=== PATIENT | male | born 1990 | race Caucasian/White ===

== ENCOUNTER 2020-03-19 07:25 | Emergency (ER) | payer OTHER, SELFPAY ==
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
[2020-03-19 07:25] VITALS: BP 132/79; PULSE 100; RESP 18; TEMP 36.6; O2SAT 99
--- NOTE | 2020-03-19 07:45 | PC.NURSE ---
Pt. refused to keep c-collar in place and removed it per self even p risks explained to pt. He states he is claustrophobic and can't breathe with it on.
[2020-03-19 08:10] LABS: Basophils Absolute Auto 0.07 K/mm3 (0.00-0.10); Eosinophils Absolute Auto 0.04 K/mm3 (0.02-0.50); Eosinophils Percent Auto 0.6 % (1.0-6.0); Hematocrit 44.9 % (40.0-54.0); Hemoglobin 14.6 g/dL (14.0-18.0); Immature Granulocyte Absolute 0.15 K/mm3 (0.00-0.00); Immature Granulocyte Percent A 2.1 % (0.0-0.0); Lymphocytes Absolute Auto 1.28 K/mm3 (1.10-4.50); Lymphocytes Percent Auto 18.2 % (18.0-42.0); Mean Corpuscular HGB Conc 32.5 g/dL (32.0-36.0); Mean Corpuscular Hemoglobin 28.3 pg (27.0-31.0); Mean Platelet Volume 10.6 fl (8.7-11.0); Monocytes Absolute Auto 0.52 K/mm3 (0.10-0.90); Monocytes Percent Auto 7.4 % (2.0-11.0); Neutrophils Percent Auto 70.7 % (50.0-70.0); Platelet Count Result 290 K/mm3 (150-420); Red Blood Count 5.16 M/mm3 (4.70-6.10); Red Cell Distribution Width 12.9 % (11.6-14.4)
[2020-03-19 08:27] LABS: Alanine Aminotransferase 64 U/L (16-63); Albumin Level 3.6 g/dL (3.4-5.0); Alkaline Phosphatase 82 U/L (46-116); Anion Gap 9 mmol/L (8-16); Aspartate Amino Transferase 28 U/L (15-37); Bilirubin,Total 0.2 mg/dL (0.00-1.00); Blood Urea Nitrogen 11 mg/dL (7-18); Calcium 9.2 mg/dL (8.5-10.1); Carbon Dioxide 25 mmol/L (21-32); Chloride 106 mmol/L (98-108); Estimated CRCL calculation 118 ml/min; Estimated Glomerular Filt Rate > 60; Glucose 150 mg/dL (70-99); Osmolality Calculated 292 mOsm/kg (285-295); Potassium 3.8 mmol/L (3.5-5.1); Sodium 140 mmol/L (136-145); Total Protein 7.9 g/dL (6.4-8.2)
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
[2020-03-19 09:34] VITALS: BP 130/75; PULSE 65; RESP 20; TEMP 36.4; O2SAT 100
== END 2020-03-19 09:47 | disposition home or self-care (01) ==
PROVIDERS: Emergency Provider Emergency Medicine
DX: S39.012A Strain of muscle, fascia and tendon of lower back, initial encounter (principal); S16.1XXA Strain of muscle, fascia and tendon at neck level, initial encounter; V89.2XXA Person injured in unspecified motor-vehicle accident, traffic, initial encounter
CPT/HCPCS: 36415; 72125; 72132; 74177; 80053; 85025; 99282; 99284; Q9965

== ENCOUNTER 2020-04-01 10:24 | Emergency (ER) | payer OTHER, SELFPAY ==
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
[2020-04-01 10:42] VITALS: BP 129/81; PULSE 103; RESP 18; TEMP 36.6; O2SAT 97
[2020-04-01] MEDS: ONDANSETRON HCL ODT 4 MG TABLET PO (10:50)
[2020-04-01 11:35] VITALS: BP 128/81; PULSE 90; RESP 16; O2SAT 97
== END 2020-04-01 11:36 | disposition home or self-care (01) ==
PROVIDERS: Emergency Provider Emergency Medicine
DX: R51 Headache (principal); V89.2XXD Person injured in unspecified motor-vehicle accident, traffic, subsequent encounter
CPT/HCPCS: 70450; 99283; 99284; A9270

== ENCOUNTER 2021-03-14 15:29 | Emergency (ER) | payer OTHER, SELFPAY ==
--- NOTE | ~2021-03-14 | CT_ITS ---
EXAMINATION: CT abdomen pelvis wo con DATE: 03/14/2021 16:17 INDICATION: Right flank pain. TECHNIQUE: Computed tomography (CT) of the abdomen and pelvis was performed without intravenous contr ast. Automated exposure control and iterative reconstruction technique were employed. The dose-length product was 636.48 mGy-cm. COMPARISON: CT abdomen and pelvis 03/19/2020 FINDINGS: The visualized portions of the lung bases demonstrate airspace opacities and nodules in ant eromedial basal segment left lower lobe. No pleural effusion. The heart size is normal. No pericardia l effusion. There is diffuse hepatic steatosis. The gallbladder, spleen, pancreas, adrenal glands, an d left kidney are normal. There is an 18 mm cyst in right kidney. There is mild right hydronephrosis and hydroureter. There is a 1 mm stone at right ureterovesicular junction. There are no dilated loops of bowel. The appendix is normal. There are no pathologically enlarged lymph nodes. There is no free intraperitoneal fluid. The bones are unremarkable. IMPRESSION: 1. 1 mm stone at right ureterovesicular junction with mild right hydronephrosis and hydroureter. 2. Airspace opacities and nodules in anteromedial basal segment left lower lobe, consistent with pneu monia. 3. Diffuse hepatic steatosis. Reviewed, dictated and finalized at location A. IMPRESSION: 1. 1 mm stone at right ureterovesicular junction with mild right hydronephrosis and hydroureter. 2. Airspace opacities and nodules in anteromedial basal segment left lower lobe , consistent with pneumonia. 3. Diffuse hepatic steatosis.
[2021-03-14 15:55] VITALS: BP 142/97; PULSE 73; RESP 20; TEMP 36.1; O2SAT 97
[2021-03-14 16:09] LABS: Basophils Absolute Auto 0.03 K/mm3 (0.00-0.10); Basophils Percent Auto 0.2 % (0.0-1.0); Hematocrit 42.4 % (40.0-54.0); Hemoglobin 14.4 g/dL (14.0-18.0); Immature Granulocyte Absolute 0.12 K/mm3 (0.00-0.00); Immature Granulocyte Percent A 0.9 % (0.0-0.0); Lymphocytes Absolute Auto 0.49 K/mm3 (1.10-4.50); Lymphocytes Percent Auto 3.7 % (18.0-42.0); Mean Corpuscular Hemoglobin 27.9 pg (27.0-31.0); Mean Platelet Volume 10.1 fl (8.7-11.0); Monocytes Absolute Auto 0.68 K/mm3 (0.10-0.90); Monocytes Percent Auto 5.1 % (2.0-11.0); Neutrophils Absolute Auto 11.9 K/mm3 (1.7-7.2); Neutrophils Percent Auto 90.1 % (50.0-70.0); Platelet Count Result 296 K/mm3 (150-420); Red Blood Count 5.17 M/mm3 (4.70-6.10); Red Cell Distribution Width 12.5 % (11.6-14.4); White Blood Count 13.3 K/mm3 (4.8-10.8)
[2021-03-14 16:16] LABS: Appearance Urine Clear (Clear); Bilirubin Urine Negative (Negative); Color Urine Light Yellow (Yellow); Glucose Urine UA 3+ (Negative); Ketones Urine 1+ (Negative); Leukocyte Esterase Ur Negative (Negative); Nitrate Urine Negative (Negative); Protein Urine Negative (Negative); Urobilinogen Urine 0.2 mg/dL (0.2-1.0)
[2021-03-14] MEDS: SODIUM CHLORIDE 0.9% IV 1,000 ML 999 ML IV CONT (16:22)
[2021-03-14 16:25] LABS: Alanine Aminotransferase 91 U/L (16-63); Albumin Level 3.9 g/dL (3.4-5.0); Alkaline Phosphatase 107 U/L (46-116); Anion Gap 15 mmol/L (8-16); Aspartate Amino Transferase 31 U/L (15-37); Bilirubin,Total 0.7 mg/dL (0.00-1.00); Blood Urea Nitrogen 17 mg/dL (7-18); Calcium 9.1 mg/dL (8.5-10.1); Carbon Dioxide 22 mmol/L (21-32); Chloride 99 mmol/L (98-108); Estimated CRCL calculation 85 ml/min; Estimated Glomerular Filt Rate > 60; Glucose 363 mg/dL (70-99); Lipase 71 U/L (73-393); Osmolality Calculated 298 mOsm/kg (285-295); Potassium 3.7 mmol/L (3.5-5.1); Sodium 136 mmol/L (136-145)
[2021-03-14] MEDS: ONDANSETRON INJ 4 MG/2 ML VIAL IV PUSH (16:29)
[2021-03-14 16:30] LABS: Add Urine Microscopic? YES; Blood Urine Trace (Negative); RBC Urine 0-2 /hpf (0-2); Squamous Epithelial Cell Urine Rare /hpf (Few); WBC Urine 0-3 /hpf (0-3)
[2021-03-14 16:30] LABS: Lactic Acid Reflex 2.9 mmol/L (0.4-2.0)
--- NOTE | 2021-03-14 16:43 | ED.ABDPAIN ---
HPI - Abdominal Pain General Chief Complaint: Urogenital-Male Stated Complaint: kidney pain Source: patient Mode of arrival: ambulatory History of Present Illness HPI narrative: this is a 30-year-old gentleman that presents with right flank pain that started at about 745 this morning located on the right flank area radiating into his right lower quadrant, patient has had a few episodes of nausea with 2 episodes of vomiting currently no dysuria no hematuria does have frequency, with some no fever chills no chest pain no shortness of breath. MD elicited complaint: abdominal pain and flank pain Pertinent past history: none Onset (ago): hour(s) Pain Consistency: constant Location: R flank Severity: moderate Pain scale (0-10): 8 Quality: dull Radiation: RLQ Exacerbating factors: nothing Relieving factors: vomiting Related Data Home Medications Medication Instructions Recorded Confirmed buspirone 15 mg PO DAILY 03/19/20 03/14/21 lisdexamfetamine [Vyvanse] 30 mg PO DAILY 03/19/20 03/14/21 topiramate 25 mg PO DAILY 03/19/20 03/14/21 zolpidem [Ambien] 10 mg PO DAILY 03/19/20 03/14/21 eszopiclone 2 mg PO DAILY 03/14/21 03/14/21 olanzapine 20 mg PO HS 03/14/21 03/14/21 Allergies Allergy/AdvReac Type Severity Reaction Status Date / Time amoxicillin Allergy Unknown Anaphylactic Verified 07/20/18 15:38 Shock aspirin Allergy Unknown Anaphylactic Verified 07/20/18 15:38 Shock Penicillins Allergy Unknown Anaphylactic Verified 07/20/18 15:38 Shock escitalopram [From Lexapro] Allergy Irritable Verified 03/14/21 16:03 Review of Systems Review of Systems: All systems reviewed & are unremarkable except as noted in HPI and below PMFSH Past Medical History Medical History (Updated 03/14/21 @ 16:55 by Ignacio Chairez MD) Bipolar 1 disorder Urolithiasis Social History Social History Smoking status: Never smoker Alcohol intake: former Substance use: never Gender identity (if verbalized by the patient): Male Exam Const: General: no acute distress Orientation/consciousness: patient oriented x3 HENMT: Head: normal to inspection Eyes: Conjunctivae: conjunctivae normal Pupils: Equal, round and reactive pupils present Neck: Neck: normal visual inspection and no lymphadenopathy Chest: Chest palpation & inspection: normal inspection of the chest Resp: Effort & Inspection: normal respiratory effort Auscultation: clear to auscultation bilaterally Cardio: Rate: regular rate Rhythm: regular rhythm GI: GI Palp: Yes Soft to palpation : General: Yes CVA tenderness Back/Spine/Pelvis: Back: CVA tenderness Skin: General skin exam: normal color Rashes: no rashes Neuro: General: patient oriented x3, moves all extremities and no meningeal signs Extrem: General: normal to inspection and no pedal edema Psych: Mental Status: mental status grossly normal Course Course Emergency Course: Patient pain level has improved currently no nausea vomiting reassessment patient and reviewed lab findings on the CT scan finding showing a 1mm right UVJ stone. Vital Signs Vital signs: Vital Signs Temperature 36.1 C L 03/14/21 15:55 Pulse Rate 73 03/14/21 15:55 Respiratory Rate 20 03/14/21 15:55 Blood Pressure 142/97 H 03/14/21 15:55 Pulse Oximetry 97 03/14/21 15:55 Temperature 36.1 C L 03/14/21 15:55 Pulse Rate 73 03/14/21 15:55 Respiratory Rate 20 03/14/21 15:55 Blood Pressure 142/97 H 03/14/21 15:55 Pulse Oximetry 97 03/14/21 15:55 MDM - Abdominal Pain Lab Data Result diagrams: 03/14/21 16:04 03/14/21 16:04 Labs: Lab Results 03/14/21 03/14/21 03/14/21 Range/Units 16:04 16:04 16:04 WBC 13.3 H (4.8-10.8) K/mm3 RBC 5.17 (4.70-6.10) M/mm3 Hgb 14.4 (14.0-18.0) g/dL Hct 42.4 (40.0-54.0) % MCV 82.0 (78.0-102.0) fL MCH 27.9 (27.0-31.0) pg MCHC 34.0
[2021-03-14 17:12] VITALS: BP 138/93; PULSE 90; RESP 20; TEMP 36.7; O2SAT 97
== END 2021-03-14 17:15 | disposition home or self-care (01) ==
PROVIDERS: Emergency Provider Emergency Medicine
DX: B34.9 Viral infection, unspecified (principal)
CPT/HCPCS: 36415; 74176; 80053; 81001; 83605; 83690; 85025; 96365; 96375; 99283; 99284; J0131; J2405; J7030

== ENCOUNTER 2022-09-22 21:34 | Emergency (ER) | payer OTHER, SELFPAY ==
--- NOTE | ~2022-09-22 | XR_ITS ---
EXAMINATION: XR knee LT 3V DATE: 09/22/2022 22:03 INDICATION: Left knee pain TECHNIQUE: Three views of the left knee were obtained. COMPARISON: None. FINDINGS: Alignment is normal. No fracture or osteochondral lesion. Joint spaces are normal with no e rosions. No joint effusion/synovitis. There is medial soft tissue swelling of the knee. IMPRESSION: 1. No acute osseous abnormality. Reviewed, dictated and finalized at location F. E AIDE
--- NOTE | 2022-09-22 21:39 | ED.FALL ---
HPI - Fall General Chief Complaint: Extremity Injury, Lower Stated Complaint: fell hurt L knee Time Seen by Provider: 09/22/22 21:36 History of Present Illness HPI Narrative: Pt fell off porch and landed on left knee. Pt complains of and abrasion and pain to his left knee. Pt denies other injury. Pt unsure of last tetanus. Related Data Home Medications Medication Instructions Recorded Confirmed buspirone 15 mg tablet 15 mg PO DAILY 03/19/20 03/14/21 lisdexamfetamine 30 mg capsule 30 mg PO DAILY 03/19/20 03/14/21 (Vyvanse) topiramate 25 mg tablet 25 mg PO DAILY 03/19/20 03/14/21 zolpidem 10 mg tablet (Ambien) 10 mg PO DAILY 03/19/20 03/14/21 eszopiclone 2 mg tablet 2 mg PO DAILY 03/14/21 03/14/21 olanzapine 20 mg tablet 20 mg PO HS 03/14/21 03/14/21 Allergies Allergy/AdvReac Type Severity Reaction Status Date / Time amoxicillin Allergy Unknown Anaphylactic Verified 09/22/22 21:51 Shock aspirin Allergy Unknown Anaphylactic Verified 09/22/22 21:51 Shock Penicillins Allergy Unknown Anaphylactic Verified 09/22/22 21:51 Shock escitalopram [From Lexapro] Allergy Irritable Verified 09/22/22 21:51 PMFSH Past Medical History Medical History (Updated 09/22/22 @ 22:06 by Tolu Laguna III, DO) Bipolar 1 disorder Urolithiasis Social History Social History Smoking status: Never smoker Alcohol intake: former Substance use: never Gender identity (if verbalized by the patient): Male Exam Const: General: healthy appearing Nutritional Appearance: well nourished Orientation/consciousness: patient oriented x3 Limitations: no limitations Skin: General skin exam: normal color Rashes: no rashes Neuro: General: patient oriented x3, moves all extremities and no focal motor deficits Extrem: Other: abrasion to left knee, no swelling or deformity, no instability or effusion Psych: Mental Status: mental status grossly normal Affect: normal affect Attitude: cooperative Course Vital Signs Vital signs: Vital Signs Temperature 98.2 F 09/22/22 21:40 Pulse Rate 68 09/22/22 21:40 Respiratory Rate 20 09/22/22 21:40 Blood Pressure 151/88 H 09/22/22 21:40 Pulse Oximetry 96 09/22/22 21:40 Oxygen Delivery Room Air 09/22/22 21:40 Temperature 98.2 F 09/22/22 21:40 Pulse Rate 68 09/22/22 21:40 Respiratory Rate 20 09/22/22 21:40 Blood Pressure 151/88 H 09/22/22 21:40 Pulse Oximetry 96 09/22/22 21:40 Oxygen Delivery Room Air 09/22/22 21:40 MDM - Fall MDM Narrative Medical decision making narrative: possible fx but unlikely. x ray to make sure. no internal derangement by exam Imaging Data My impression: left knee no fx Discharge Plan Discharge Clinical Impression: Abrasion of knee, left Patient Disposition: Home, Self-Care Condition: Stable Instructions: Antibiotic Form, Abrasion (ED) Additional Instructions: motrin otc 3 pills (600 mg) 4 times daily as needed Prescriptions: No Action topiramate 25 mg tablet 25 mg PO DAILY zolpidem [Ambien] 10 mg tablet 10 mg PO DAILY buspirone 15 mg tablet 15 mg PO DAILY Vyvanse 30 mg capsule 30 mg PO DAILY sumatriptan succinate 50 mg tablet See Rx Instructions .ROUTE .COMPLEX Qty: 10 0RF Rx Instructions: take 1 tab at onset of headache; if no relief may repeat 1 tab after at least 2 hrs; max = 4 tabs/24 hr olanzapine 20 mg tablet 20 mg PO HS eszopiclone 2 mg tablet 2 mg PO DAILY ondansetron HCl [Zofran] 4 mg tablet 4 mg PO Q6H PRN (Reason: nausea and vomiting) Qty: 10 0RF oxycodone-acetaminophen [Percocet] 5-325 mg tablet 1 tablet PO Q6H PRN (Reason: pain) Qty: 10 0RF tamsulosin [Flomax] 0.4 mg capsule 0.4 mg PO DAILY Qty: 7 0RF Follow-up/Referrals: UNKNOWN,DOCTOR [Primary Care Provider] - Stand Alone Forms: Work/School Release IP
[2022-09-22 21:40] VITALS: BP 151/88; PULSE 68; RESP 20; TEMP 36.8; O2SAT 96
[2022-09-22] MEDS: TETANUS,DIPHTHERIA,AC PERTUSSIS ADULT 0.5 ML (ADACEL) IM (21:47)
== END 2022-09-22 22:20 | disposition home or self-care (01) ==
LOC: CHSED 22:12
PROVIDERS: Emergency Provider Emergency Medicine
DX: S80.212A Abrasion, left knee, initial encounter (principal); Z23 Encounter for immunization; W17.89XA Other fall from one level to another, initial encounter
CPT/HCPCS: 73562; 90471; 90715; 99283

== ENCOUNTER 2024-01-04 10:49 | Emergency (ER) | payer OTHER, SELFPAY ==
[2024-01-04 10:53] VITALS: BP 132/89; PULSE 79; RESP 18; TEMP 36.2
[2024-01-04 11:00] VITALS: BP 132/89; PULSE 79; RESP 18; TEMP 36.2
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
[2024-01-04] MEDS: methylPREDNISolone SOD SUCC 125 MG VIAL 40 MG IM (11:20)
== END 2024-01-04 11:35 | disposition home or self-care (01) ==
PROVIDERS: Emergency Provider Internal Medicine Critical Care Medicine; PCP Family Medicine
DX: M79.18 Myalgia, other site (principal)
CPT/HCPCS: 96372; 99283; J2919